=== PATIENT | female | born 1930 | race Caucasian/White ===

== ENCOUNTER 2018-02-25 14:33 | Emergency (ER) | payer SELFPAY ==
[~2018-02-25] VITALS: Ht 152.4 cm; Wt 72.6 kg
[2018-02-25] MEDS ORDERED: AMLO5TAB2 PO (14:55)
[2018-02-25] MEDS ORDERED: ALEN70TA45 PO (14:55)
[2018-02-25] MEDS ORDERED: PANT20TA2 PO (14:55)
[2018-02-25] MEDS ORDERED: FURO20TA4 PO (14:55)
[2018-02-25] MEDS ORDERED: RIVA10TA PO (14:55)
[2018-02-25] MEDS ORDERED: AMLO10TA2 PO (14:55)
[2018-02-25] MEDS ORDERED: FLUT1DIS28 IH (14:55)
[2018-02-25] MEDS ORDERED: ERGO500014 PO (14:55)
[2018-02-25] MEDS ORDERED: METO-356 PO (14:55)
[2018-02-25] MEDS ORDERED: SERT50TA PO (14:55)
--- NOTE | 2018-02-25 15:05 | NUR ---
BROUGHT IN BY RA 88 FOR SOB AT CARDIOLOGISTS OFFICE. SP02 WAS BELOW 90% ON RA. O2 APPLIED AT 3L VIA N/C AND SPO2 WENT UP TO 97%. PATIENT IS SOB ON EXERTION. PLACED ON CONTINUOUS CARDIAC MONITORING.
[2018-02-25 15:12] LABS: BASOPHILS % (AUTO) 0.7 % (0.0-2.0); EOSINOPHILS # (AUTO) 0.2 K/uL (0.0-0.7); EOSINOPHILS % (AUTO) 2.7 % (0.0-7.0); HEMATOCRIT 34.8 % (31.2-41.9); HEMOGLOBIN 11.4 g/dL (10.9-14.3); LYMPHOCYTES # (AUTO) 0.9 K/uL (20.0-40.0); LYMPHOCYTES % (AUTO) 13.2 % (20.5-51.5); MEAN CORPUSCULAR HEMOGLOBIN 29.7 uug (24.7-32.8); MEAN CORPUSCULAR HGB CONC 33 g/dL (32.3-35.6); MEAN CORPUSCULAR VOLUME 90.3 fL (75.5-95.3); MONOCYTES # (AUTO) 0.6 K/uL (2.0-10.0); MONOCYTES % (AUTO) 9.4 % (0.0-11.0); PLATELET COUNT (AUTO) 222 K/uL (179-408); RED BLOOD CELL COUNT(AUTO) 3.85 MIL/uL (3.63-4.92); WHITE BLOOD COUNT (AUTO) 6.8 K/uL (3.8-11.8)
[2018-02-25 15:20] LABS: CARBON DIOXIDE 33 mmol/L (21-32); CHLORIDE 102 mmol/L (98-107); GLUCOSE 98 mg/dL (74-106); UREA NITROGEN, BLOOD 19 mg/dL (7-18)
[2018-02-25 15:33] LABS: ALANINE AMINOTRANSFERASE 25 U/L (14-59); ALKALINE PHOSPHATASE 84 U/L (50-136); ASPARTATE AMINOTRANSFERASE 22 U/L (15-37); BILIRUBIN,DIRECT 0.2 mg/dL (0.0-0.2); BILIRUBIN,TOTAL 0.6 mg/dL (0.2-1.0); TOTAL PROTEIN, SERUM 7.8 g/dL (6.4-8.2)
[2018-02-25] MEDS ORDERED: FUROSEMIDE 20 MG/2 ML VIAL IV ONE (15:45)
[2018-02-25] MEDS ORDERED: FUROSEMIDE 40 MG/4 ML VIAL ONE (15:51)
--- NOTE | 2018-02-25 16:05 | NUR ---
PATIENT DENIES CHEST PAIN OR DIZZINESS. SHE IS SOB WITH EXERTION. SHE WAS OFF THE O2 BRIEFLY WHILE SHE WAS USING THE TOILET AND HER SP02 DROPPED TO 71%. I IMMEDIATLEY PLACED HER BACK ON O2 AND HER SP02 WENT UP TO 98%. I NOTIFIED DR VERA. I ALSO TOLD THE PATIENT AND HER DAUGHTER CAPRICE THAT HER OXYGEN LEVELS ON ROOM AIR ARE DANGEROUSLY LOW AND IT ISNT SAFE TO GO TO ANOTHER FACILITY RIGHT NOW DR VERA STATED TO THEM PREVIOSULY. PT INSISTS ON GOING TO ANOTHER HOSPITAL BECAUSE HER DOCTORS ARE ALL THERE.
--- NOTE | 2018-02-25 16:23 | NUR ---
PATIENT AND FAMILY STATE THEY WANT TO GO TO [facility] BECAUSE THEY HAVE ALL THEIR DOCTORS THERE. DR VERA SPOKE TO THEM AND ALSO SPOKE TO THE RESIDENTIAL DESIGNER DR TRIVEDI AND TOLD THEM THAT PATIENT NEEDS TO STAY HERE BECAUSE HER BREATHING IS UNSTABLE. PATIENT AND FAMILY STILL INSISTED THAT SHE GOES TO [place].
--- NOTE | 2018-02-25 17:20 | NUR ---
PATIENT AND DAUGHTER SPOKE TO DR VERA AGAIN AND DR VERA AGAIN TOLD THEM THAT SHE IS TOO UNSTABLE TO LEAVE THE HOSPITAL RIGHT NOW. PATIENT ADN DAUGHTER WERE INFORMED OF ALL RISKS INCLUDING AND THE DAUGHTER AND PATIENT STILL SIGNED OUT AMA.
--- NOTE | 2018-02-25 17:23 | NUR ---
IV DC'D, CATH TIP INTACT, PRESSURE APPLIED, DRESSING APPLIED. ALL COPIES OF LABS AND EKG AND MED ADMINISTRATION (LASIX) GIVEN TO DAUGHTER TO GIVE TO [facility] STAFF. PATIENT WAS WHEELCHAIRED TO CAR BY OTHER STAFF WITH OXYGEN APPLIED UNTIL RIGHT BEFORE DEPARTURE.
== END 2018-02-25 17:28 | disposition left against medical advice (07) ==
LOC: ER 14:35
DX: J96.21 Acute and chronic respiratory failure with hypoxia (principal); I50.43 Acute on chronic combined systolic (congestive) and diastolic (congestive) heart failure; I11.0 Hypertensive heart disease with heart failure; I25.10 Atherosclerotic heart disease of native coronary artery without angina pectoris; Z79.51 Long term (current) use of inhaled steroids; Z79.899 Other long term (current) drug therapy; Z53.29 Procedure and treatment not carried out because of patient's decision for other reasons
CPT/HCPCS: 36415; 80048; 80076; 83605; 83880; 84443; 84484; 85025; 85730; 87040 ×2; 93005; 96374; 99291; A4663; J1940; 70030-TC

== ENCOUNTER 2018-03-14 06:38 | Day surgery (SDC) | payer MEDICARE, OTHER ==
[~2018-03-14 06:38] MED LIST: ALEN70TA45 PO; AMLO10TA2 PO; AMLO5TAB2 PO; ERGO500014 PO; FLUT1DIS28 IH; FURO20TA4 PO; METO-356 PO; PANT20TA2 PO; RIVA10TA PO; SERT50TA PO
[2018-03-14] MEDS ORDERED: LIDOCAINE-MPF 2% 5 ML VIAL MC ONE (06:39)
[2018-03-14] MEDS ORDERED: PROPOFOL 200 MG/20 ML BOTTLE IV ONE (06:39)
[2018-03-14] MEDS ORDERED: BALANCED SALT IRRIG SOLN COMB1 500 ML, EPINEPHRINE-PF 1:1000 1 MG IO ONE ×2 (07:00)
[2018-03-14] MEDS ORDERED: PILOCARPINE 1% OPHT DROP 15 ML BOTTLE ONE (07:12)
[2018-03-14] MEDS ORDERED: TETRACAINE HCL 0.5% OPHT DROP 2 ML BOTTLE ONE ×3 (07:12→08:57)
[2018-03-14] MEDS ORDERED: LIDOCAINE HCL-MPF 1% 5 ML VIAL ONE (07:12)
[2018-03-14] MEDS ORDERED: NEO/POLYMYX B/DEXAME OPHT OINT 3.5 GM TUBE ONE (07:12)
[2018-03-14] MEDS ORDERED: BUPIVACAINE PF 0.5% 30 ML VIAL ONE (07:13)
[2018-03-14] MEDS ORDERED: HYALURONATE SODIUM 8.5 MG/0.85 ML DISP.SYRIN ONE ×2 (07:13→09:02)
[2018-03-14] MEDS ORDERED: EPINEPHRINE 1 MG/1 ML AMP ONE (07:13)
[2018-03-14] MEDS ORDERED: BALANCED SALT IRRIG SOLN COMB2 15 ML IRRIG.SOLN ONE (07:13)
[2018-03-14 07:25] LABS: BASOPHILS # (AUTO) 0.1 K/uL (0.0-8.0); EOSINOPHILS # (AUTO) 0.3 K/uL (0.0-0.7); EOSINOPHILS % (AUTO) 5.4 % (0.0-7.0); HEMATOCRIT 34.4 % (31.2-41.9); HEMOGLOBIN 11.3 g/dL (10.9-14.3); LYMPHOCYTES # (AUTO) 0.9 K/uL (20.0-40.0); LYMPHOCYTES % (AUTO) 14.7 % (20.5-51.5); MEAN CORPUSCULAR HEMOGLOBIN 29.6 uug (24.7-32.8); MEAN CORPUSCULAR HGB CONC 33 g/dL (32.3-35.6); MEAN CORPUSCULAR VOLUME 89.9 fL (75.5-95.3); MONOCYTES # (AUTO) 0.8 K/uL (2.0-10.0); MONOCYTES % (AUTO) 12.8 % (0.0-11.0); NEUTROPHILS # (AUTO) 3.9 K/uL (1.8-8.9); NEUTROPHILS % (AUTO) 66.1 % (38.5-71.5); PLATELET COUNT (AUTO) 224 K/uL (179-408); RED BLOOD CELL COUNT(AUTO) 3.82 MIL/uL (3.63-4.92); WHITE BLOOD COUNT (AUTO) 5.9 K/uL (3.8-11.8)
[2018-03-14 07:34] LABS: CARBON DIOXIDE 37 mmol/L (21-32); CHLORIDE 98 mmol/L (98-107); GLUCOSE 98 mg/dL (74-106); POTASSIUM 3.5 mmol/L (3.5-5.1); UREA NITROGEN, BLOOD 18 mg/dL (7-18)
[2018-03-14] MEDS ORDERED: PHENYLEPHRINE 2.5% OPHT DROP 2 ML BOTTLE ONE (07:36)
[2018-03-14] MEDS ORDERED: CIPROFLOXACIN 0.3% OPHT DROP 2.5 ML BOTTLE ONE (07:36)
[2018-03-14] MEDS ORDERED: CYCLOPENTOLATE 1% OPHT DROP 2 ML BOTTLE ONE (07:36)
[2018-03-14] MEDS ORDERED: FLURBIPROFEN 0.03% OPHT DROP 2.5 ML BOTTLE ONE (07:36)
[2018-03-14 07:40] LABS: ALANINE AMINOTRANSFERASE 20 U/L (14-59); ALKALINE PHOSPHATASE 73 U/L (50-136); ASPARTATE AMINOTRANSFERASE 23 U/L (15-37); BILIRUBIN,TOTAL 0.6 mg/dL (0.2-1.0); TOTAL PROTEIN, SERUM 8.2 g/dL (6.4-8.2)
[2018-03-14] MEDS ORDERED: KETAMINE HCL 500 MG/10 ML INJ ONE (07:41)
[2018-03-14] MEDS ORDERED: SUCCINYLCHOLINE CHLORIDE 200 MG/10 ML VIAL ONE (07:41)
== END 2018-03-14 11:05 | disposition home or self-care (01) ==
LOC: DS 06:38
PROVIDERS: ATTEND Dermatology MOHS-Micrographic Surgery
DX: H25.89 Other age-related cataract (principal); I11.0 Hypertensive heart disease with heart failure; I25.10 Atherosclerotic heart disease of native coronary artery without angina pectoris; J45.909 Unspecified asthma, uncomplicated; F64.9 Gender identity disorder, unspecified; M19.90 Unspecified osteoarthritis, unspecified site; F32.9 Major depressive disorder, single episode, unspecified; M81.0 Age-related osteoporosis without current pathological fracture; I47.1 Supraventricular tachycardia; Z98.890 Other specified postprocedural states; I50.33 Acute on chronic diastolic (congestive) heart failure; Z79.899 Other long term (current) drug therapy; Z98.42 Cataract extraction status, left eye
CPT/HCPCS: 36415; 66982; 71045; 80053; 85025; 85730; A4663; J0171 ×2; J3490 ×5; J3590; J7120; J7321 ×2; V2632; J0330